=== PATIENT | female | born 1935 | race African-American/Black ===

== ENCOUNTER → 2016-06-12 | Outpatient (CLI) | payer MEDICARE, BC ==
[2014-03-21 21:10] VITALS: BP 129/63
[~2016-06-12] MED LIST: ASPI-482 PO; CARB1TAB44 PO; DONE10TA7 PO; LISI-338 PO; MEMA10TA PO; METO25TA4 PO; OMEP20TA63 PO; POLY15DR27 OU
[2016-06-12 08:07] LABS: HEMATOCRIT 37.4 % (36.0-47.0); RED BLOOD COUNT 4.03 x10^6/uL (3.50-5.40); WHITE BLOOD COUNT 4.4 x10^3/uL (4.0-11.0)
[2016-06-12 08:42] LABS: CALCIUM 8.8 mg/dL (8.5-10.1); CREATININE 0.7 mg/dL (0.6-1.0); GFR 96.9; POTASSIUM 4.1 mmol/L (3.5-5.1)
== END | disposition home or self-care (01) ==
LOC: SPEC 07:41
PROVIDERS: ATTEND Family Medicine
DX: I10 Essential (primary) hypertension (principal)
CPT/HCPCS: 36415; 80048; 85027

== ENCOUNTER → 2017-03-11 | Outpatient (CLI) | payer MEDICARE, BC ==
[2017-03-11 11:55] LABS: INFLUENZA A PATIENT NEGATIVE (NEGATIVE); INFLUENZA B PATIENT NEGATIVE (NEGATIVE); OBC FLU VALID
== END | disposition home or self-care (01) ==
LOC: SPEC 09:56
DX: J10.89 Influenza due to other identified influenza virus with other manifestations (principal)
CPT/HCPCS: 87804; 87804-59